=== PATIENT | male | born 1985 | race Caucasian/White ===

== ENCOUNTER 2016-05-19 20:50 | Inpatient (IN) | payer OTHER ==
[~2016-05-19] VITALS: Ht 180.3 cm; Wt 97.0 kg
[~2016-05-19 20:50] MED LIST: ASPIRIN81 M4 PO
--- NOTE | 2016-05-19 20:53 | NUR ---
TO MAR FOR EKG
--- NOTE | 2016-05-19 21:13 | NUR ---
PT TO ED C/O "HEART RACING AND DIZZINESS" OFF AND ON SINCE 7 PM. PMH OF SAME "I'VE BEEN IN AFIB BEFORE" DENIES DIZZINESS NOW. HR 160'S AFIB ON CM. NAD DENIES PAIN
--- NOTE | 2016-05-19 21:27 | NUR ---
PT TO ROOM 2, IV EST. PT MEDICATED WITH 10MG CARDIZEM INITALLY WITH NO CHANGE IN HR. MEDICATED WITH ADDITIONAL 10MG CARDIZEM. TALISHA GARVIN CONTINUES AT BEDSIDE.
--- NOTE | 2016-05-19 21:30 | NUR ---
LABS SENT (BLUE,SST,LAV,LOPEZ)
--- NOTE | 2016-05-19 21:35 | ED CARDIAC/CP/PALPITATIONS ---
See Addendum History of Present Illness General Chief Complaint: Chest Pain Stated Complaint: PT IS HAVING CHEST PAIN Source: patient, family, old records Exam Limitations: no limitations Vital Signs & Intake/Output Vital Signs & Intake/Output Vital Signs Date Time Temp Pulse Resp B/P Pulse O2 O2 Flow FiO2 Ox Delivery Rate 05/20 2327 95.5 110 20 125/67 99 Room Air 05/20 2127 152 137/61 05/19 2124 152 16 137/61 97 Room Air 05/19 2105 96.8 98 20 107/66 99 Room Air ED Intake and Output 05/20 0000 05/19 1200 Intake Total Output Total 780 Balance -780 Output, Urine 780 Patient 215 lb Weight Allergies Coded Allergies: shellfish derived (WHEEZING, CHEST TIGHTNESS 09/07/15) venom-honey bee (BEE VENOM (HONEY BEE)) (ANAPHYLAXIS 09/07/15) cefaclor (From CECLOR) (HIVES 09/07/15) Reconcile Medications No Known Home Medications Triage Note: PT TO ED C/O "HEART RACING AND DIZZINESS" OFF AND ON SINCE 7 PM. PMH OF SAME "I'VE BEEN IN AFIB BEFORE" DENIES DIZZINESS NOW. HR 160'S ON CM. NAD DENIES PAIN Triage Nurses Notes Reviewed? yes Onset: Abrupt Duration: hour(s): ( 7pm), constant Timing: single episode today Quality/Severity: moderate Location: central HPI: 30-year-old male comes into emergency room with complaints of sudden onset of palpitations and feeling gets heart is racing. Denies any chest pain or shortness of breath. Denies any sweating. Denies any fever chills cough. Patient reports that he was seen here last year for rapid A. fib. Patient was seen by Dr. Benton. He was not discharge any type of medication to reports. He has had not been on any medications. Patient spontaneously converted back to normal sinus rhythm last time on his own. (VIRGIE ROSAS) Past History Travel History Traveled to [place] past 21 day No Medical History Any Pertinent Medical History? 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 Hx Contributory? Yes (VIRGIE ROSAS) Review of Systems Review of Systems Constitutional: Reports: no symptoms. EENTM: Reports: no symptoms. Respiratory: Reports: no symptoms. Cardiovascular: Reports: see HPI. GI: Reports: no symptoms. Genitourinary: Reports: no symptoms. Musculoskeletal: Reports: no symptoms. Skin: Reports: no symptoms. Neurological/Psychological: Reports: no symptoms. Hematologic/Endocrine: Reports: no symptoms. Immunologic/Allergic: Reports: no symptoms. All Other Systems: Reviewed and Negative (VIRGIE ROSAS) Physical Exam Physical Exam General Appearance: well developed/nourished, no apparent distress, alert Head: atraumatic, normal appearance Eyes: Bilateral: normal appearance, EOMI. Ears, Nose, Throat: normal pharynx, normal ENT inspection Neck: normal inspection, full range of motion Respiratory: normal breath sounds, no respiratory distress Cardiovascular: tachycardia, irregularly irregular Back: normal inspection Extremities: normal inspection, normal range of motion Neurologic/Psych: awake, alert, oriented x 3, normal gait, normal mood/affect Skin: intact, normal color Core Measures ACS in differential dx? Yes Severe Sepsis Present: No Septic Shock Present: No (VIRGIE ROSAS) Progress Differential Diagnosis: AMI, aortic dissection, atrial fibrillation, cholecystitis, pericarditis, pneumonia, pneumothorax, pulmonary embolism, PVCs/ PACs, unstable angina, V-fib/V-Tach, WPW syndrome Plan of Care: Orders Procedure Date/time Status Regular Diet 05/20 B Active PARTIAL THROMBOPLASTIN TIME 05/20 0430 Active TROPONIN LEVEL 05/20 0300 Active MAGNESIUM 05/20 0300 Active CBC WITHOUT DIFFERENTIAL 05/20 0300 Active BASIC ELECTROLYTES PLUS BUN&CR 05/20 0300 Active EKG 05/20 0300 Active Code Status 05/19 2350 Active URINE DRUGS OF ABUSE 05/20 2223 Complete URINALYSIS 05/20 2223 Complete OXYGEN SETUP (GEN) 05/19 2200 Active Saline Lock 05/19 2200 Active Pathway - chart 05/19 2200 Active House Staff 05/19 2200 Active Admit to inpatient 05/19 2200 Active Vital Signs 05/19 2200 Active Activity/Ambulation 05/19 2200 Active Code Status 05/19 2200 Complete Patient Data 05/19 2149 Active Add-on Test (ER Only) 05/19 2140 Active Intake & Output 05/20 2123 Active EKG 05/19 2122 Active TSH REFLEX 05/20 2119 Complete PARTIAL THROMBOPLASTIN TIME 05/20 2119 Complete PROTHROMBIN TIME 05/20 2119 Complete TROPONIN LEVEL 05/19 2110 Complete COMPREHENSIVE METABOLIC PANEL 05/19 2110 Complete CBC WITHOUT DIFFERENTIAL 05/19 2110 Complete EKG 05/19 2052 Active Current Medications Sig/Awilda Start time Last Medication Dose Stop Time Status Admin Diltiazem HCl 60 MG ONCE ONE 05/19 2144 CAN (Cardizem) 05/19 2145 Laboratory Tests 05/19/162234: Urine Opiates Screen < 100.00, Methadone Screen < 40, Barbiturate Screen < 60, Ur Phencyclidine Scrn < 6.00, Amphetamines Screen < 100, U Benzodiazepines Scrn < 85, Urine Cocaine Screen < 50, Urine Cannabis Screen < 5.00, Urine Color STRAW , Urine Clarity CLEAR, Urine pH 6.5, Ur Specific [place] <= 1.005, Urine Protein NEG, Urine Ketones TRACE H, Urine Nitrite NEG, Urine Bilirubin NEG, Urine Urobilinogen 0.2, Ur Leukocyte Esterase NEG, Ur Microscopic EXAM NOT REQUIRED, Urine Hemoglobin NEG, Urine Glucose NEG 05/19/162119: Anion Gap 11, Estimated GFR > 60, BUN/Creatinine Ratio 22.5, Glucose 120 H, Calcium 9.7, Total Bilirubin 0.6, AST 33, ALT 66, Alkaline Phosphatase 58, Troponin I < 0.01, Total Protein 7.6, Albumin 4.7, Globulin 2.9, Albumin/ Globulin Ratio 1.6, TSH &T3 &Free T4 Intrp 1.780, PT 11.1, INR 1.06, APTT 32, CBC w Diff NO MAN DIFF REQ, RBC 5.27, MCV 92.3, MCH 32.0 H, RDW 12.1, MPV 9.0, Gran % 74.0, Lymphocytes % 18.3 L, Monocytes % 6.4, Eosinophils % 1.0, Basophils % 0.3, Absolute Granulocytes 10.8 H, Absolute Lymphocytes 2.7, Absolute Monocytes 0.9 H, Absolute Eosinophils 0.1, Absolute Basophils 0, PUBS MCHC 34.7 05/19/162116: TSH &T3 &Free T4 Intrp Cancelled Initial ED EKG: rate (152), AFIB, no delta wave appreciated Prior EKG: changed (VIRGIE ROSAS) Departure Departure Disposition: STILL A PATIENT Condition: Stable Clinical Impression Primary Impression: Rapid atrial fibrillation Referrals: PATIENT HAS NO PRIMARY CARE DR (PCP/Family) Departure Forms: Customer Survey General Discharge Information Prescriptions: Current Visit Scripts No Known Home Medications Admission Note Spoke With: INEZ WAN PhD,TAL Mcclure Documentation of Exam: Documentation of any treatments & extenuating circumstances including Concerns Regarding Discharge (functional status, medication knowledge or non-compliance, living conditions, etc.) that warrant an admission rather than observation: Patient will require IV anticoagulation. Cardiac telemetry. Cardiac consultation. Possibly IV Cardizem drip. Repeat labs. Repeat EKGs. (VIRGIE ROSAS) PA/POWER BRAKE REBUILDER Co-Sign Statement Statement: ED Attending supervision documentation- x I saw and evaluated the patient. I have also reviewed all the pertinent lab results and diagnostic results. I agree with the findings and the plan of care as documented in the PA's/POWER BRAKE REBUILDER's documentation. [] I have reviewed the ED Record and agree with the PA's/POWER BRAKE REBUILDER's documentation. [] Additions or exceptions (if any) to the PAs/POWER BRAKE REBUILDER's note and plan are summarized below: [] (LENORE WAN,KRYSTAL) Critical Care Note Critical Care Note Critical Care Time: 30-74 min (40 minutes) (VIRGIE ROSAS)
[2016-05-19 21:38] LABS: ABSOLUTE BASOPHIL COUNT 0 /CUMM (0.0-0.2); ABSOLUTE EOSINOPHIL COUNT 0.1 /CUMM (0.0-0.7); ABSOLUTE GRANULOCYTE CT 10.8 /CUMM (1.4-6.5); ABSOLUTE LYMPH COUNT 2.7 /CUMM (1.2-3.4); ABSOLUTE MONOCYTE COUNT 0.9 /CUMM (0.10-0.60); BASOPHIL % 0.3 % (0.0-2.0); HEMATOCRIT 48.6 % (42-52); MEAN CORPUSCULAR HGB CONC 34.7 G/DL (33.0-37.0); MEAN CORPUSCULAR VOLUME 92.3 FL (80.0-94.0); PLATELET COUNT 177 /CUMM (130-400); RBC DISTRIBUTION WIDTH 12.1 % (11.5-14.5); RED BLOOD CELL CT 5.27 /CUMM (4.70-6.10); WHITE BLOOD CELL COUNT 14.6 /CUMM (4.8-10.8)
--- NOTE | 2016-05-19 21:38 | NUR ---
PT RHYTHM NOTED TO HAVE SLOWED TO THE 80'S/90'S CONTINUES TO BE IRREGULAR EKG IN PROGRESS.
[2016-05-19 22:19] LABS: PT 11.1 SEC (9.4-12.5); PTT 32 SEC (25-37)
--- NOTE | 2016-05-19 22:26 | History & Physical ---
See Addendum ANABEL WAN,NORAHMario 05/19/16 8775: General Information and HPI MD Statement: I have seen and personally examined JOSE LESLIE and documented this H&P. The patient is a 30 year old M who presented with a patient stated chief complaint of [palpitations]. Source of Information: patient, family, old records Exam Limitations: no limitations History of Present Illness: This is a 30 yo male w/ PMH significant for childhood asthma-not on any medications/inhalers, Uorki-Rmivjfkvy-Zygrb presenting with paroxysmal A. fib with RVR, who comes in with CC of palpitations. Patient states that today around 7 PM he started noting a racing heartrate. After the palpitations lasted about an hour he came to the ED for further evaluation. He endorses some chest tightness, but denies any dizziness, lightheadedness, slurring of speech, weakness headache, or chest pain. Pt has previous admission for similar complaint in August 2015 w/CC A. fib with RVR-rate in the 140s. On further evaluation he was found to have delta waves on EKG and preexcitation. During that admission he spontaneously converted with echo showing no evidence of clot and a normal EF. He was counseled to decrease caffeine and etoh intake; pt discharged w/o anticoagulation other than baby aspirin 2/2 low CHADSVASc. 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 He cut down on caffeine after prev admission, but today he drank a second cup of coffee in the evening and he noted palpitations afterwards. Last etoh intake on Monday, denies any drugs. He smokes a pack a day. Since previous admission he has noted intermittent brief episodes of palpitations lasting 5-15 minutes and spontaneously remitted. Today is the longest episode of palpitations since previous admission. These episodes are not associated with chest pain/N/V/D/SOB. After admission in 2015 he was advised to f/u with park interpretive specialist, pt never made appointment. Denies any ablative procedure in interim. Allergies/Medications Allergies: Coded Allergies: shellfish derived (WHEEZING, CHEST TIGHTNESS 09/07/15) venom-honey bee (BEE VENOM (HONEY BEE)) (ANAPHYLAXIS 09/07/15) cefaclor (From CECLOR) (HIVES 09/07/15) Home Med list No Known Home Medications Compliance With Home Meds: UNKNOWN Past History Travel History Traveled to [place] past 21 day No Medical History Neurological: NONE EENT: NONE Cardiovascular: AFIB Respiratory: asthma, Martell parkinson white Gastrointestinal: NONE Hepatic: NONE Renal: NONE Musculoskeletal: NONE Psychiatric: NONE Endocrine: NONE Blood Disorders: NONE Cancer(s): NONE 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 Psychosocial History Services at Home: None Smoking Status: Current Everyday Smoker ETOH Use: occasional use Illicit Drug Use: denies illicit drug use Functional Ability ADLs Independent: dressing, eating, toileting, bathing. Ambulation: independent IADLs Independent: shopping, housework, finances, food prep, telephone, transportation , medication admin. Review of Systems Review of Systems Constitutional: Denies: chills, fever, malaise, weakness. EENTM: Reports: no symptoms. Cardiovascular: Reports: palpitations. Denies: chest pain, edema, orthopena, peripheral edema, syncope. Respiratory: Reports: no symptoms. GI: Reports: no symptoms. Genitourinary: Reports: no symptoms. Musculoskeletal: Reports: no symptoms. Skin: Reports: no symptoms. Neurological/Psychological: Reports: anxiety. Exam & Diagnostic Data Last 24 Hrs of Vital Signs/I&O Vital Signs Date Time Temp Pulse Resp B/P Pulse O2 O2 Flow FiO2 Ox Delivery Rate 05/20 2127 152 137/61 05/19 2124 152 16 137/61 97 Room Air 05/19 2105 96.8 98 20 107/66 99 Room Air Physical Exam General Appearance Alert, Oriented X3, Cooperative, No Acute Distress Skin No Rashes, No Breakdown, No Significant Lesion HEENT Atraumatic, PERRLA, EOMI, Mucous Membr. moist/pink Neck Supple Cardiovascular irregularly irregular. No murmurs Lungs Clear to Auscultation, Normal Air Movement Abdomen Normal Bowel Sounds, Soft, No Tenderness Neurological Normal Speech, Strength at 5/5 X4 Ext, Sensation Intact, Cranial Nerves 3-12 NL Extremities No Clubbing, No Cyanosis, No Edema, Normal Pulses Vascular Normal Pulses Last 24 Hrs of Labs/[place]quito: Laboratory Tests 05/19/162234: Urine Opiates Screen < 100.00, Methadone Screen < 40, Barbiturate Screen < 60, Ur Phencyclidine Scrn < 6.00, Amphetamines Screen < 100, U Benzodiazepines Scrn < 85, Urine Cocaine Screen < 50, Urine Cannabis Screen < 5.00, Urine Color STRAW , Urine Clarity CLEAR, Urine pH 6.5, Ur Specific [place] <= 1.005, Urine Protein NEG, Urine Ketones TRACE H, Urine Nitrite NEG, Urine Bilirubin NEG, Urine Urobilinogen 0.2, Ur Leukocyte Esterase NEG, Ur Microscopic EXAM NOT REQUIRED, Urine Hemoglobin NEG, Urine Glucose NEG 05/19/162119: Anion Gap 11, Estimated GFR > 60, BUN/Creatinine Ratio 22.5, Glucose 120 H, Calcium 9.7, Total Bilirubin 0.6, AST 33, ALT 66, Alkaline Phosphatase 58, Troponin I < 0.01, Total Protein 7.6, Albumin 4.7, Globulin 2.9, Albumin/ Globulin Ratio 1.6, TSH &T3 &Free T4 Intrp 1.780, PT 11.1, INR 1.06, APTT 32, CBC w Diff NO MAN DIFF REQ, RBC 5.27, MCV 92.3, MCH 32.0 H, RDW 12.1, MPV 9.0, Gran % 74.0, Lymphocytes % 18.3 L, Monocytes % 6.4, Eosinophils % 1.0, Basophils % 0.3, Absolute Granulocytes 10.8 H, Absolute Lymphocytes 2.7, Absolute Monocytes 0.9 H, Absolute Eosinophils 0.1, Absolute Basophils 0, PUBS MCHC 34.7 05/19/162116: TSH &T3 &Free T4 Intrp Cancelled Assessment/Plan Assessment: This is a 30-year-old man past history significant for Aerkz-Seorpknqm-Pegig comes in for chief complaint of palpitations. Patient found to be in A. fib with RVR. Prior to admission, in ED, pt received 20 mg IV push of Cardizem. Heart rate seemed to slow down to 110s, but later resumed to 150s. ED work up shows: Vitals: 96.8, 152, 20, blood pressure 107/66 to 137/61, 99. CBC: White count 14.6, hemoglobin 11.9. 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 Dr. Benton, registered pharmacist was consulted. Per his recommendations we will hold off on administering any rate control drugs as patient may automatically convert to normal sinus rhythm. * IV heparin for anticoagulation * If necessary will use procainamide for rate control * Serial EKG and troponin * Cardiology consult * Monitor on telemetry Full code Regular diet Chemical DVT prophylaxis As Ranked By This Provider Problem List: 1. Rapid atrial fibrillation 2. Atrial fibrillation with rapid ventricular response Core Measures/Miscellaneous Acute Coronary Syndrome ACS Diagnosis: No Cerebrovascular Accident CVA/TIA Diagnosis: No Congestive Heart Failure CHF Diagnosis: No Venous Thromboembolism VTE Risk Factors: Acute medical illness No [facility] VTE prophylaxis d/t: No contraindications No VTE Pharm Prophylaxis d/t: No contraindications VTE Diagnosis: No VTE Type: NONE VTE Confirmed by (Test): NONE Severe Sepsis Severe Sepsis Present: No Septic Shock Septic Shock Present: No Miscellaneous Documentation Attending Case Discussed With: INEZ WAN PhD,TAL Mcclure Primary Care Physician: PATIENT HAS NO PRIMARY CARE DR Patient sees these Specialists unknown Level of Patient Care: General Medicine Consults Needed: Consulting Specialty: Cardiology JOSIAS WAN,DEAN 05/19/16 0007: Resident Review Statement Resident Statement: examined this patient, discussed with international travel consultant, agreed with international travel consultant, discussed with family, reviewed EMR data (avail), discussed with nursing , discussed with case mgmt, reviewed images, amended to note Other Findings: Jose is a 30-year-old man with medical history of childhood asthma, paroxysmal atrial fibrillation approximately one year and history of Uieua-Rslipspqu-Vxgwc syndrome. He presents with expressing palpitations, and some mild chest discomfort is nonradiating this aproximally 7 PM. Since the last time he was evaluated in 2016 units. Paroxysms of palpitations that have resolved. He seeks medical evaluation this time because this episode has not resolved likely others. He denies using any stimulants drugs, or excessive coffee. No recent illness. Of note, his mother has also been diagnosed with Msomy-Qalpaaqml-Ttays syndrome. He sees Tal Benton MD, was evaluated as an outpatient with echocardiogram and stress stress testing to rule out any structural or ischemic heart disease, and was advised to follow-up with real estate lawyer for further workup of Harley Parkinson White syndrome, however the patient was lost to follow- up and never had this workup. The patient was never anticoagulated when he was discharged last summer because of low CHADSVASC score, indicating chronic/ long-term anticoagulation is not necessitated. In the emergency department, the ER provider administered 20 mg of diltiazem IV push in an effort to rate control the patient, and initiated a heparin drip for anticoagulation. Thus far he feels well, his heart rate is variable 110-150 bpm. PO cardizem was ordered by ED, however we have DC'd it and notified pharmacy that the patient should not receive any AV grace blockers whatsoever. In the interim I have talked to Dr. Tal Benton over the phone, and he agrees with no AV grace blockers, and suspects the patient may spontaneously convert - as he has done so in the past. If his rate should get higher, he wants to be notified stat and believes we may need to use procainamide for rate control going forward. VS afebrile, normotensive, elevated HR. Exam notable for irregularly irregular rhythm and tachycardia. Remainder was normal and noted above. CBC notabel for wbc 14,000. Trop negative. Coags, nl. Utox negative. Prev. Echo didnt reveal any structural abnormalities, and LVEF 60% - Problems - Afib RVR WPW syndrome - Plan - Cont tele monitor Serial enzyme and EKG Heparin gtt No rate control for now Call Cardiology (Inez) if HR >= 150bpm DVT - heparin gtt FULL
--- NOTE | 2016-05-19 22:37 | NUR ---
PT BED ASSIGNMENT 171-1
--- NOTE | 2016-05-19 22:41 | NUR ---
URINE TRIO SENT
--- NOTE | 2016-05-19 22:53 | NUR ---
PER DEAN OBTAIN EKG IF HEART RATE ELEVATES AND MAINTAINS AT 150, OBTAIN EKG AND NOTIFY HIM AT 158 OR 016.
--- NOTE | 2016-05-19 23:28 | NUR ---
REPORT GIVEN TO PRE SALES NETWORK ENGINEER. FLOOR REQUESTING PT TRANSPORT TO BE HELD AT THIS TIME.
[2016-05-20 03:30] LABS: ABSOLUTE BASOPHIL COUNT 0 /CUMM (0.0-0.2); ABSOLUTE EOSINOPHIL COUNT 0.2 /CUMM (0.0-0.7); ABSOLUTE GRANULOCYTE CT 5.9 /CUMM (1.4-6.5); ABSOLUTE LYMPH COUNT 4.5 /CUMM (1.2-3.4); ABSOLUTE MONOCYTE COUNT 0.8 /CUMM (0.10-0.60); BASOPHIL % 0.2 % (0.0-2.0); EOSINOPHIL % 1.5 % (0-5); GRANULOCYTE % 51.5 % (42.2-75.2); MEAN CORPUSCULAR HGB 31.9 PG (27.0-31.0); MEAN CORPUSCULAR HGB CONC 33.8 G/DL (33.0-37.0); MEAN CORPUSCULAR VOLUME 94.3 FL (80.0-94.0); MEAN PLATELET VOLUME 9.3 FL (7.4-10.4); PLATELET COUNT 168 /CUMM (130-400); RBC DISTRIBUTION WIDTH 12.1 % (11.5-14.5); RED BLOOD CELL CT 5.09 /CUMM (4.70-6.10); WHITE BLOOD CELL COUNT 11.5 /CUMM (4.8-10.8)
--- NOTE | 2016-05-20 03:39 | NUR ---
AT 0305 PT CONVERTED FROM AFIB TO NSR. KLAUS WHITLEY MD MADE AWARE
[2016-05-20 05:11] LABS: PTT 100 SEC (25-37)
--- NOTE | 2016-05-20 07:24 | PN- Housestaff ---
Subjective Follow-up For: Atrial fibrillation with WPW syndrome Subjective: Patient's seen and examined this morning lying comfortably on the bed. He feels well this morning and wants to leave. Labs and vitals looked normal. Review of Systems Constitutional: Reports: see HPI. Objective Last 24 Hrs of Vital Signs/I&O Vital Signs Date Time Temp Pulse Resp B/P Pulse O2 O2 Flow FiO2 Ox Delivery Rate 05/21 819 98.2 62 20 102/60 97 05/20 2327 95.5 110 20 125/67 99 Room Air 05/20 2127 152 137/61 05/19 2124 152 16 137/61 97 Room Air 05/19 2105 96.8 98 20 107/66 99 Room Air Intake & Output 05/20 1600 05/20 0800 05/20 0000 Intake Total 130 Output Total 780 Balance 130 -780 Intake, IV 130 Output, Urine 780 Patient 97 kg 97.522 kg Weight Physical Exam General Appearance: Alert, Oriented X3, Cooperative, No Acute Distress Skin: No Rashes, No Breakdown HEENT: Atraumatic, PERRLA Neck: Supple Cardiovascular: Normal S1, Normal S2 Lungs: Normal Air Movement Abdomen: Soft, No Tenderness Neurological: Normal Speech, Normal Tone Extremities: No Edema Current Medications: Current Medications Sig/Awilda Start time Last Medication Dose Route Stop Time Status Admin Diltiazem HCl 60 MG ONCE ONE 05/19 2144 CAN PO 05/19 2145 Diltiazem HCl 20 MG ONCE ONE 05/19 2129 DC 05/19 IV PUSH 05/19 Diltiazem HCl 0 .STK-MED ONE 05/20 2119 DC .ROUTE Heparin Sodium 0 .STK-MED ONE 05/20 2211 DC (Porcine) .ROUTE Heparin Sodium 5,000 UNIT ONCE ONE 05/19 2144 DC 05/19 (Porcine) IV 05/19 Heparin Sodium 25,000 UNIT Q24H 05/19 2144 DCD 05/19 (Porcine) IV 2228 Sodium Chloride 500 ML Last 24 Hrs of Lab/[place] Results Last 24 Hrs of Labs/Mics: Laboratory Tests 05/20/16 1230: APTT Cancelled 05/20/16 0430: APTT 100 H 05/20/16 0305: Anion Gap 6, Estimated GFR > 60, BUN/Creatinine Ratio 18.8, Magnesium 2.1, Troponin I < 0.01, CBC w Diff NO MAN DIFF REQ, RBC 5.09, MCV 94.3 H, MCH 31.9 H, RDW 12.1, MPV 9.3, Gran % 51.5, Lymphocytes % 39.5, Monocytes % 7.3, Eosinophils % 1.5, Basophils % 0.2, Absolute Granulocytes 5.9, Absolute Lymphocytes 4.5 H, Absolute Monocytes 0.8 H, Absolute Eosinophils 0.2, Absolute Basophils 0, PUBS MCHC 33.8 05/19/162234: Urine Opiates Screen < 100.00, Methadone Screen < 40, Barbiturate Screen < 60, Ur Phencyclidine Scrn < 6.00, Amphetamines Screen < 100, U Benzodiazepines Scrn < 85, Urine Cocaine Screen < 50, Urine Cannabis Screen < 5.00, Urine Color STRAW , Urine Clarity CLEAR, Urine pH 6.5, Ur Specific [place] <= 1.005, Urine Protein NEG, Urine Ketones TRACE H, Urine Nitrite NEG, Urine Bilirubin NEG, Urine Urobilinogen 0.2, Ur Leukocyte Esterase NEG, Ur Microscopic EXAM NOT REQUIRED, Urine Hemoglobin NEG, Urine Glucose NEG 05/19/162119: Anion Gap 11, Estimated GFR > 60, BUN/Creatinine Ratio 22.5, Glucose 120 H, Calcium 9.7, Total Bilirubin 0.6, AST 33, ALT 66, Alkaline Phosphatase 58, Troponin I < 0.01, Total Protein 7.6, Albumin 4.7, Globulin 2.9, Albumin/ Globulin Ratio 1.6, TSH &T3 &Free T4 Intrp 1.780, PT 11.1, INR 1.06, APTT 32, CBC w Diff NO MAN DIFF REQ, RBC 5.27, MCV 92.3, MCH 32.0 H, RDW 12.1, MPV 9.0, Gran % 74.0, Lymphocytes % 18.3 L, Monocytes % 6.4, Eosinophils % 1.0, Basophils % 0.3, Absolute Granulocytes 10.8 H, Absolute Lymphocytes 2.7, Absolute Monocytes 0.9 H, Absolute Eosinophils 0.1, Absolute Basophils 0, PUBS MCHC 34.7 05/19/162116: TSH &T3 &Free T4 Intrp Cancelled Assessment/Plan Assessment: Patient is a 30-year-old man with medical history of childhood asthma, paroxysmal atrial fibrillation approximately one year and history of Martell- Parkinson-White syndrome. She presented with palpitations and mild chest discomfort nonradiating in nature started around 7 PM on 05/19/16. Patient reports he had a similar episode in 2016 approximately 8 months ago when he was evaluated by Dr. Benton Patient denies using any stimulants drugs, or excessive coffee. No recent illness. Of note, his mother has also been diagnosed with Lbrbv-Mmvmwqwqc-Ixrmn syndrome. He sees Murray Benton MD, was evaluated as an outpatient with echocardiogram and stress stress testing to rule out any structural or ischemic heart disease, and was advised to follow-up with coke oven patcher for further workup of Harley Parkinson White syndrome, however the patient was lost to follow- up and never had this workup. The patient was never anticoagulated when he was discharged last summer because of low CHADSVASC score, indicating chronic/detention anticoagulation is not necessitated. Patient was given diltiazem in ER however given his underlying Martell-Parkinson- White syndrome he shouldn't be given any AV grace blocking agent. Dr. Benton in agreement Labs and vitals as above Echo didnt reveal any structural abnormalities, and LVEF 60% Problem list 1. Afib RVR 2. WPW syndrome Assessment and plan Patient was admitted to telemetry floor and monitored for his A. fib with RVR Converted back to sinus rhythm His troponins have been negative Patient was started on heparin drip for anticoagulation however on discharge it is stopped and he is discharged on aspirin. Patient's rate was controlled. Jose R Benton was on board DVT - heparin gtt FULL Code Problem List: 1. Atrial fibrillation with rapid ventricular response Pain Ratin Pain Location: n/a Pain Goal: Pain 4 or less Pain Plan: tylenol prn for pain Tomorrow's Labs & Rationales: none Consulting Request: Consulting Specialty: Cardiology
[2016-05-20 08:20] VITALS: BP 102/60
--- NOTE | 2016-05-20 10:49 | Cons- Cardiology ---
General Information and HPI Consulting Request Date of Consult: 05/20/16 Requested By: INEZ WAN PhD,TAL Mcclure History of Present Illness: Jose is a 30 year old male with longstanding history of palpitations and evidence of WPW syndrome. He presented to the ER with complaints of rapid palpitations along with mild shortness of breath and lightheadedness. He was found to be in atrial fibrillation with rapid ventricular rate which spontaneously converted back into a sinus rhythm. He now feels improved. Typically, this patient has similar symptoms a few times a year since age 20 and it is often resolved by deep inhalation. It should be noted that his mother has Martell- Parkinson-White syndrome as well. He has demonstrated a delta wave with short AK interval and prolonged QRS consistent iwth WPW. He was recommended to see an assembler production line but this was not done. This patient has been risk stratified with a treadmill nuclear stress test that showed an excellent exercise tolerance without any ischemic changes. His echocardiogram showed a normal EF of 60% with borderline LVH, trace MR and trace TR. Allergies/Medications Allergies: Coded Allergies: shellfish derived (WHEEZING, CHEST TIGHTNESS 09/07/15) venom-honey bee (BEE VENOM (HONEY BEE)) (ANAPHYLAXIS 09/07/15) cefaclor (From CECLOR) (HIVES 09/07/15) Home Med List: No Known Home Medications Review of Systems Review of Systems: A twelve point review of systems is unremarkable. Past History Travel History Traveled to [place] past 21 day No Medical History Neurological: NONE EENT: NONE Cardiovascular: AFIB, Mjhdl-Thunqzkhv-Vaqkq syndrome Respiratory: asthma, Martell parkinson white Gastrointestinal: NONE Hepatic: NONE Renal: NONE Musculoskeletal: NONE Psychiatric: NONE Endocrine: NONE Blood Disorders: NONE Cancer(s): NONE VERIFYING SPECIALIST/Reproductive: NONE Other Medical Hx: resection of a rheumatoid nodule on foot; surgical repair of torn tendon Surgical History Surgical History: none Family History Relations & Conditions If Any: MOTHER (WPW syndrome). Family History Reviewed? Father: [place] at age 42 Mother: WPW syndrome Psychosocial History Services at Home: None Smoking Status: Current Everyday Smoker (1ppd) ETOH Use: 12 beers per weekend Illicit Drug Use: denies illicit drug use Functional Ability ADLs Independent: dressing, eating, toileting, bathing. Ambulation: independent IADLs Independent: shopping, housework, finances, food prep, telephone, transportation , medication admin. Exam & Diagnostic Data Vital Signs and I&O Vital Signs Date Time Temp Pulse Resp B/P Pulse O2 O2 Flow FiO2 Ox Delivery Rate 05/21 819 98.2 62 20 102/60 97 05/20 2327 95.5 110 20 125/67 99 Room Air 05/20 2127 152 137/61 05/19 2124 152 16 137/61 97 Room Air 05/19 2105 96.8 98 20 107/66 99 Room Air Intake & Output 05/20 0000 05/19 1600 05/19 0805/19 0000 Intake Total 130 Output Total 780 Balance 130 -780 Intake, IV 130 Output, Urine 780 Patient 214 lb 215 lb Weight Physical Exam: General: WD/ WN male in NAD; alert and oriented x 3 HEENT: NC/AT, PERRL, EOMI Neck: no JVD, no carotid bruits Heart: RRR w/o mumur Lungs: clear bilaterally Abdomen: soft, NT, +ve bowel sounds Extremities: no edema Diagnostic Data EKG Results atrial fibrillation Assessment/Plan Assessment/Plan * This patient has had multiple episodes of palpitations with documented atrial fibrillation with rapid heart rate. He is now in NSR. His CHADSvasc scor is low and therefore chronic anticoagulation is not necessary other than aspirin 81mg daily. 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 He may be discharged to home with follow up in my office in two weeks. He has been instructed to follow up with Dr. Brandin Stark for further evaluation of this problem. Consult Acknowledgment - Thank you for your consult request.
--- NOTE | 2016-05-20 11:55 | Patient Discharge Instructions ---
Discharge Instructions General Discharge Information Special Instructions: beulah follow upw ith Dr. Benton within 2 weeks of discharge. Please follow up with your PCP within a week of discharge. Acute Coronary Syndrome Inclusion Criteria At DC or during hospital stay patient has or had the following: ACS DIAGNOSIS No Discharge Core Measures Meds if any: Prescribed or Continued at Discharge Meds if any: NOT Prescribed or Continued at Discharge Congestive Heart Failure Inclusion Criteria At DC or during hospital stay patient has or had the following: CHF DIAGNOSIS No Discharge Core Measures Meds if any: Prescribed or Continued at Discharge Meds if any: NOT Prescribed or Continued at Discharge Cerebrovascular accident Inclusion Criteria At DC or during hospital stay patient has or had the following: CVA/TIA Diagnosis No Discharge Core Measures Meds if any: Prescribed or Continued at Discharge Meds if any: NOT Prescribed or Continued at Discharge Venous thromboembolism Inclusion Criteria VTE Diagnosis No VTE Type NONE VTE Confirmed by (Test) NONE Discharge Core Measures - Per Current guidelines, there needs to be overlap - treatment for the first 5 days of Warfarin therapy. - If discharged on Warfarin prior to 5 days of - overlap therapy, the patient will need to be - assessed for post discharge needs including - *Post discharge parental anticoagulation - *Warfarin and/or parental anticoagulation education - *Follow up date to check INR post discharge At least 5 days overlap therapy as Inpatient No Meds if any: Prescribed or Continued at Discharge Note: Overlap Therapy is Warfarin and Anticoagulant Meds if any: NOT Prescribed or Continued at Discharge
[2016-05-20] MEDS ORDERED: ASPIRIN EC81 M1 PO (11:56)
--- NOTE | 2016-05-20 15:00 | Discharge Summary ---
Visit Information Visit Dates Admission Date: 05/19/16 Discharge Date: 05/20/16 Hospital Course Course Attending Physician: INEZ WAN PhD,MURRAY Mcclure Primary Care Physician: PATIENT HAS NO PRIMARY CARE DR Consulting Request: Consulting Specialty: Cardiology Hospital Course: Patient is a 30-year-old man with medical history of childhood asthma, paroxysmal atrial fibrillation approximately one year and history of Martell- Parkinson-White syndrome. She presented with palpitations and mild chest discomfort nonradiating in nature started around 7 PM on 05/19/16. Patient reports he had a similar episode in 2016 approximately 8 months ago when he was evaluated by Dr. Benton Patient denies using any stimulants drugs, or excessive coffee. No recent illness. Of note, his mother has also been diagnosed with Bptnp-Kexglekuw-Sndxi syndrome. He sees Murray Benton MD, was evaluated as an outpatient with echocardiogram and stress stress testing to rule out any structural or ischemic heart disease, and was advised to follow-up with global process owner for further workup of Harley Parkinson White syndrome, however the patient was lost to follow- up and never had this workup. The patient was never anticoagulated when he was discharged last summer because of low CHADSVASC score, indicating chronic/senior care anticoagulation is not necessitated. Patient was given diltiazem in ER however given his underlying Martell-Parkinson- White syndrome he shouldn't be given any AV grace blocking agent. Dr. Benton in agreement Labs and vitals as above Echo didnt reveal any structural abnormalities, and LVEF 60% Problem list 1. Afib RVR 2. WPW syndrome Assessment and plan Patient was admitted to telemetry floor and monitored for his A. fib with RVR Converted back to sinus rhythm His troponins have been negative Patient was started on heparin drip for anticoagulation however on discharge it is stopped and he is discharged on aspirin. Patient's rate was controlled. Doc Inez was on board DVT - heparin gtt FULL Code Allergies: Coded Allergies: shellfish derived (WHEEZING, CHEST TIGHTNESS 09/07/15) venom-honey bee (BEE VENOM (HONEY BEE)) (ANAPHYLAXIS 09/07/15) cefaclor (From CECLOR) (HIVES 09/07/15) Disposition Summary Disposition Principal Diagnosis: Atrial fibrillation with RVR Additional Diagnosis: WPW syndrome Discharge Disposition: home or self care Discharge Instructions General Discharge Information Code Status: Full Code Patient's Diet: art healthy Patient's Activity: as tolerated Follow-Up Instructions/Appts: Please follow up with PCP upon discharge. Medications at Discharge Discharge Medications: Start taking the following new medications: Aspirin (Ecotrin*) 81 MG TABLET. 1 Tablet ORAL DAILY Qty = 30 No Refills Comments: NOT GIVEN IN HOSPITAL Copies To: INEZ WAN PhD,MURRAY Mcclure
== END 2016-05-20 12:15 | DRG 310 ==
LOC: ENRESERVDT → ENRESERVTM → ERH 20:50 → ENPENDDIS 22:01 → ERHI 22:01 → 1NO 22:01
PROVIDERS: Internal Medicine Hematology & Oncology; Physician Assistant Medical; ADMIT Internal Medicine Interventional Cardiology
DX: I48.91 Unspecified atrial fibrillation (principal); I45.6 Pre-excitation syndrome; J45.909 Unspecified asthma, uncomplicated
CPT/HCPCS: 1NP; 80307; 81003; 82436; 93005; 93010; 96374; 99291; J1644